=== PATIENT | female | born 1985 | race Caucasian/White ===

== ENCOUNTER 2017-05-07 13:50 | Emergency (ER) | payer OTHER ==
[2017-05-07 13:55] VITALS: O2SAT 97
[2017-05-07] MEDS ORDERED: KETOROLAC 30 MG/1 ML SDV IVP ONE (14:21)
[2017-05-07 14:31] LABS: COLOR YELLOW; LEUKOCYTE ESTERASE,URINE NEGATIVE (NEGATIVE); NITRITE,URINE NEGATIVE (NEGATIVE)
[2017-05-07 14:35] LABS: BACTERIA TRACE /hpf (NONE SEEN); MUCUS TRACE /lpf (NONE-1+)
--- NOTE | 2017-05-07 14:48 | CPEKG ---
Heart Rate: 75 RR Interval: 800 P-R Interval: 152 QRSD Interval: 94 QT Interval: 368 QTC Interval: 411 P [place]: 49 QRS [place]: 78 T Wave [place]: 44 EKG Severity - NORMAL ECG - EKG Impression: SINUS RHYTHM Electronically Signed By: Abelardo Chavis 07-May-2017 18:18:06
--- NOTE | 2017-05-07 15:25 | EDPHY ---
H & P Time Seen by Provider: 05/07/17 14:01 HPI/ROS: CHIEF COMPLAINT: Chest pain HISTORY OF PRESENT ILLNESS: 31-year-old female presents to the emergency department with chest pain for last 3 days. She denies any known trauma or injury. She states that she went to urgent care earlier today and they sent her to the emergency department for evaluation. She denies feeling short of breath. Denies pleuritic chest pain. Denies any abdominal pain, neck or back pain. Yesterday the patient noted hematuria. She denies any dysuria urgency or frequency with urination. She states that she is now urinating normally. Her last menstrual period was approximately 1 month ago and she denies . Denies recent travel. Denies calf pain or swelling. No recent surgery. REVIEW OF SYSTEMS: Constitutional: No fever, no chills. Eyes: No double or blurry vision. ENT: No sore throat. Respiratory: No cough, no shortness of breath. Cardiac: chest pain. Gastrointestinal: No abdominal pain, vomiting or diarrhea. Genitourinary: No dysuria. Musculoskeletal: No neck or back pain. Skin: No rashes. Neurological: No headache. Past Medical/Surgical History: Negative Social History: Single and lives in [place] Smoking Status: Never smoked Physical Exam: General Appearance: Alert, no distress. Vital signs are stable. Heart rate 84, 97% on room air. Eyes: Pupils equal and round. Extraocular motions are all intact. ENT: Mouth: Mucous membranes moist. Respiratory: No wheezing, rhonchi, or rales, lungs are clear to auscultation. The patient has reproducible pain with palpation to the left anterior aspect of the chest just left lateral of the sternum overlying the 6th rib area. No palpable crepitus or other bony abnormality. Cardiovascular: Regular rate and rhythm. Gastrointestinal: Abdomen is soft and nontender, no masses, no rebound or guarding, bowel sounds normal. Neurological: Alert and oriented x 3, cranial nerves II through XII grossly intact Skin: Warm and dry, no rashes. Musculoskeletal: Nontender to palpate along the cervical, thoracic or lumbar spine. Neck is supple. Extremities: Full range of motion and no peripheral edema. Psychiatric: Patient is oriented X 3, there is no agitation. Constitutional: Initial Vital Signs Temperature (C) 36.9 C 05/07/17 13:53 Heart Rate 84 07/04/17 13:53 Respiratory Rate 16 05/07/17 13:53 Blood Pressure 167/107 H 05/07/17 13:53 O2 Sat (%) 97 05/07/17 13:53 O2 Delivery Mode Room Air Allergies/Adverse Reactions: No Known Allergies Allergy (Unverified 05/07/17 13:53) Home Medications: Medication Instructions Recorded NK [No Known Home Meds] 05/07/17 Medical Decision Making - Diagnostics Imaging Results: Imaging Impressions Chest X-Ray 05/07/17 14:22 Impression: No acute pulmonary disease. Imaging: I viewed and interpreted images myself ED Course/Re-evaluation: 31-year-old female presents to the emergency department with left side chest pain. Pain is reproducible with palpation. Pain was also relieved with 15 mg of Toradol IV. I do not think this patient has a pulmonary embolism. Her perk score 0. D- dimer was negative. I did discuss CT pulmonary angiogram with the patient the patient declined this. Clinically I think this patient likely has costochondritis. I encouraged continued anti-inflammatories although she should not need any more tonight since she was given IV Toradol. Patient also had history of hematuria. Her urinalysis reveals 3-5 white blood cells with just trace bacteria and 1+ epithelial cells. Urine cultures pending. I do not think this patient needs antibiotics. Differential Diagnosis: Including but not limited to costochondritis, musculoskeletal chest wall pain, pulmonary embolism, peptic ulcer disease, GERD, myocardial infarction - Data Points Laboratory Results: 05/07/17 05/07/17 05/07/17 14:35 14:10 14:10 D-Dimer < 0.27 ug/mLFEU ug/mLFEU (0.00-0.50) Urine Color YELLOW Urine Appearance HAZY Urine pH 8.0 H (5.0-7.5) Ur Specific [place] 1.002 (1.002-1.030) Urine Protein NEGATIVE (NEGATIVE) Urine Ketones NEGATIVE (NEGATIVE) Urine Blood 1+ H (NEGATIVE) Urine Nitrate NEGATIVE (NEGATIVE) Urine Bilirubin NEGATIVE (NEGATIVE) Urine Urobilinogen NEGATIVE EU EU (0.2-1.0) Ur Leukocyte Esterase NEGATIVE (NEGATIVE) Urine RBC 3-5 /hpf H /hpf (0-3) Urine WBC 1-3 /hpf /hpf (0-3) Ur Epithelial Cells 1+ /lpf /lpf (NONE-1+) Urine Bacteria TRACE /hpf H /hpf (NONE SEEN) Urine Mucus TRACE /lpf /lpf (NONE-1+) Urine Glucose NEGATIVE (NEGATIVE) Urine Test NEGATIVE Medications Given: Discontinued Medications Ketorolac Tromethamine (Toradol) 15 mg IVP EDNOW ONE Stop: 05/07/17 14:22 Last Admin: 05/07/17 14:40 Dose: 15 mg Departure - Departure Disposition: Home, Routine, Self-Care Clinical Impression: Costochondritis, History of hematuria Condition: Good Instructions: Costochondritis (ED) Additional Instructions: Ibuprofen 600 mg every 8 hours as needed for pain. Activity as tolerated. Return to the emergency department if you feel short of breath, if you develop worsening or change in your chest pain, or if you feel worse in any way. Call [phone] for the results of your urine culture in 48 hours. Referrals: Toña Olivarez MD [Medical Doctor] - 2-3 days, if not improved (Primary care provider button spindler)
[2017-05-07 15:52] VITALS: BP 123/84; PULSE 70; RESP 17; TEMP 98.8
== END 2017-05-07 16:05 | disposition home or self-care (01) ==
DX: M94.0 Chondrocostal junction syndrome [Tietze] (principal); R31.9 Hematuria, unspecified; Z87.448 Personal history of other diseases of urinary system
CPT/HCPCS: 96374; J1885